=== PATIENT | female | born 1995 | race Two or more races ===

== ENCOUNTER 2017-06-20 17:46 | Emergency (ER) | payer OTHER ==
[~2017-06-20] VITALS: Ht 165.1 cm; Wt 88.9 kg
[~2017-06-20 17:46] MED LIST: MEDROL4 MG/DOSE- PO; ZYRTEC-D T1 TAB.SR1 PO
== END 2017-06-20 18:48 | disposition left against medical advice (07) ==
LOC: CFTX 17:46 → CED 17:46
DX: Z53.21 Procedure and treatment not carried out due to patient leaving prior to being seen by health care provider (principal)

== ENCOUNTER 2017-06-21 12:03 | Emergency (ER) | payer OTHER ==
[~2017-06-21] VITALS: Ht 165.1 cm; Wt 88.9 kg
== END 2017-06-21 12:55 | disposition home or self-care (01) ==
LOC: CED 12:03 → CFTX 12:03
DX: N89.8 Other specified noninflammatory disorders of vagina (principal); Z20.2 Contact with and (suspected) exposure to infections with a predominantly sexual mode of transmission; Z88.2 Allergy status to sulfonamides
CPT/HCPCS: 84703; 96372; 99283; J0696